=== PATIENT | male | born 1940 | race Caucasian/White ===

== ENCOUNTER 2018-04-27 06:29 | Inpatient (IN) ==
[2018-05-11 08:16] VITALS: BP 136/70
== END 2018-05-11 09:10 | disposition home health service (06) | DRG 982 ==
LOC: N.5E 06:29 → N.CVR 05-02 10:25 → N.TELES 05-03 10:11
PROVIDERS: ADMIT Internal Medicine Pulmonary Disease; ATTEND Internal Medicine Pulmonary Disease
PROC: CABGAVR (ICD-10-PCS; 2018-05-02 06:46)

== ENCOUNTER 2018-05-25 09:48 | Inpatient (IN) ==
[2018-05-25] MEDS ORDERED: MAGNESIUM SULF RIDER 2 GM in PREMIX 1 EACH IV PRN (09:59)
[2018-05-25] MEDS ORDERED: ACETAMINOPHEN 325 MG TABLET PO PRN (09:59)
[2018-05-25] MEDS ORDERED: MAGNESIUM SULF RIDER 4 GM in PREMIX 1 EACH IV PRN (09:59)
[2018-05-25] MEDS ORDERED: ZALEPLON 5 MG CAPSULE PO PRN (09:59)
[2018-05-25] MEDS ORDERED: ONDANSETRON 4 MG/2 ML VIAL IV PRN (09:59)
[2018-05-25 11:07] LABS: Basophils % 0.6 % (0.0-0.8); Eosinophils % 0.8 % (0.00-10.9); Hematocrit 38.8 VOL% (42.0-52.0); Hemoglobin 12.2 GM/DL (14.0-18.0); Immature Granulocytes % 0.4 %; Immature Granulocytes Absolute 0.02 #; Lymphocytes # 0.9 10*3/uL (1.4-4.0); Lymphocytes % 16.8 % (21.2-54.2); Mean Corpuscular HGB Conc 31.4 GM/DL (32-36); Mean Corpuscular Hemoglobin 30 PG (27-34); Mean Platelet Volume 10.1 FL (9.6-12.0); Monocytes # 0.6 10*3/uL (0.11-0.8); Monocytes % 10.5 % (1.7-12.7); NRBC # 0.02 10*3/uL; Neutrophils # 3.8 10*3/uL (1.4-7.4); Neutrophils % 70.9 % (38.7-73.9); Platelet Count 218 T/CUMM (130-400); Red Blood Count 4.04 MC/CUMM (3.8-5.5); Red Cell Distribution Width 19.3 % (9.3-17.3); White Blood Count 5.3 T/CUMM (4-12)
[2018-05-25 11:37] LABS: Troponin I Only < 0.015 NG/ML (0.00-0.045)
[2018-05-25 11:56] LABS: Bilirubin,Total 0.4 MG/DL (0.2-1.0); Calcium 8.7 MG/DL (8.5-10.1); Osmolality,Calculated 274.7 MOS/KG (273-304); Potassium 3.9 MMOL/L (3.5-5.1); Thyroid Stimulating Hormone 4.55 uIU/ml (0.358-3.74); Total Protein 7.1 G/DL (6.4-8.3)
[2018-05-25] MEDS ORDERED: NITROGLYCERIN SL 0.4 MG TABLET SL PRN (14:48)
[2018-05-25] MEDS: THEOPHYLLINE ER 300 MG TABLET PO SCH (17:33)
[2018-05-25] MEDS: ALBUTEROL 2.5 MG/3 ML NEB RESP TX SCH ×2 (20:25→23:56)
[2018-05-25] MEDS: DILTIAZEM CD 240 MG CAPSULE PO SCH (21:47)
[2018-05-25] MEDS: ENOXAPARIN 40 MG/0.4 ML SYRINGE SUBCUT SCH (21:47)
[2018-05-25] MEDS: AMIODARONE 200 MG TABLET PO SCH (21:48)
[2018-05-25] MEDS: FERROUS SULFATE ER 140 MG TABLET PO SCH (21:48)
[2018-05-25] MEDS: ROSUVASTATIN 20 MG TABLET PO SCH (21:49)
[2018-05-26] MEDS: ALBUTEROL 2.5 MG/3 ML NEB RESP TX SCH ×7 (04:40→23:07)
[2018-05-26 05:26] LABS: Basophils % 0.4 % (0.0-0.8); Eosinophils % 0.2 % (0.00-10.9); Hematocrit 37.6 VOL% (42.0-52.0); Hemoglobin 12.4 GM/DL (14.0-18.0); Immature Granulocytes % 0.6 %; Immature Granulocytes Absolute 0.03 #; Lymphocytes # 0.9 10*3/uL (1.4-4.0); Lymphocytes % 16.4 % (21.2-54.2); Mean Corpuscular Hemoglobin 31 PG (27-34); Mean Corpuscular Volume 93.1 FL (87-102); Mean Platelet Volume 9.8 FL (9.6-12.0); Monocytes # 0.5 10*3/uL (0.11-0.8); Monocytes % 9.5 % (1.7-12.7); NRBC # 0.02 10*3/uL; Neutrophils # 3.9 10*3/uL (1.4-7.4); Neutrophils % 72.9 % (38.7-73.9); Platelet Count 220 T/CUMM (130-400); Red Blood Count 4.04 MC/CUMM (3.8-5.5); Red Cell Distribution Width 18.8 % (9.3-17.3); White Blood Count 5.3 T/CUMM (4-12)
[2018-05-26 05:55] LABS: Calcium 8.3 MG/DL (8.5-10.1); Osmolality,Calculated 273.7 MOS/KG (273-304); Potassium 3.9 MMOL/L (3.5-5.1)
[2018-05-26] MEDS ORDERED: LEVOTHYROXINE 75 MCG TABLET PO SCH (06:30)
[2018-05-26 07:54] LABS: Apearance,Urine CLEAR (Clear); Bilirubin,Urine Negative (Negative); Blood, Urine Small mg/dL (Negative); Glucose,Urine (UA) 50 mg/dL (Negative); Ketones,Urine Negative (Negative); Mucus,Urine Occasional /LPF (Occasional); Nitrite,Urine Negative (Negative); Protein,Urine Negative; RBC,Urine 2 /HPF (0-4); Squamous Epithelial Cell,Urine Occasional /HPF (0-10); Urine Color Yellow (Yellow); Urine Specific Gravity 1.014 (1.001-1.035); Urine Urobilinogen < 2.0 EU/DL (0.2-1.0); WBC,Urine 1 /HPF (0-6)
[2018-05-26] MEDS: FERROUS SULFATE ER 140 MG TABLET PO SCH ×2 (08:40→20:46)
[2018-05-26] MEDS: AMIODARONE 200 MG TABLET PO SCH ×2 (08:40→20:46)
[2018-05-26] MEDS: DILTIAZEM CD 240 MG CAPSULE PO SCH ×2 (08:40→20:46)
[2018-05-26] MEDS: AZELASTINE NASAL 137 MCG/SPRAY 30 ML BOTTLE BOTH NARES SCH (08:40)
[2018-05-26] MEDS: ROSUVASTATIN 20 MG TABLET PO SCH (08:40)
[2018-05-26] MEDS: ASPIRIN EC 81 MG TABLET PO SCH (08:40)
[2018-05-26] MEDS: THEOPHYLLINE ER 300 MG TABLET PO SCH ×2 (08:40→16:37)
[2018-05-26] MEDS ORDERED: FUROSEMIDE 40 MG/4 ML VIAL IV ONE (11:30)
[2018-05-26] MEDS: DIGOXIN 0.125 MG TABLET PO SCH (12:38)
[2018-05-26] MEDS: ENOXAPARIN 40 MG/0.4 ML SYRINGE SUBCUT SCH (20:45)
[2018-05-27] MEDS: ALBUTEROL 2.5 MG/3 ML NEB RESP TX SCH ×6 (02:42→23:40)
[2018-05-27 04:55] LABS: Basophils % 0.5 % (0.0-0.8); Eosinophils % 0.9 % (0.00-10.9); Hematocrit 35.7 VOL% (42.0-52.0); Hemoglobin 11.1 GM/DL (14.0-18.0); Immature Granulocytes % 0.7 %; Immature Granulocytes Absolute 0.03 #; Lymphocytes # 0.7 10*3/uL (1.4-4.0); Mean Corpuscular HGB Conc 31.1 GM/DL (32-36); Mean Corpuscular Hemoglobin 30 PG (27-34); Mean Corpuscular Volume 96.5 FL (87-102); Mean Platelet Volume 10.5 FL (9.6-12.0); Monocytes # 0.5 10*3/uL (0.11-0.8); Monocytes % 11.1 % (1.7-12.7); Neutrophils # 3.1 10*3/uL (1.4-7.4); Neutrophils % 70.8 % (38.7-73.9); Platelet Count 197 T/CUMM (130-400); Red Cell Distribution Width 18.8 % (9.3-17.3); White Blood Count 4.3 T/CUMM (4-12)
[2018-05-27 05:20] LABS: Calcium 7.6 MG/DL (8.5-10.1); Osmolality,Calculated 274.5 MOS/KG (273-304); Potassium 3.8 MMOL/L (3.5-5.1)
[2018-05-27] MEDS: DOCUSATE SODIUM 100 MG CAPSULE PO PRN (09:40)
[2018-05-27] MEDS: THEOPHYLLINE ER 300 MG TABLET PO SCH ×2 (09:40→17:28)
[2018-05-27] MEDS: ROSUVASTATIN 20 MG TABLET PO SCH (09:40)
[2018-05-27] MEDS: ASPIRIN EC 81 MG TABLET PO SCH (09:40)
[2018-05-27] MEDS: FERROUS SULFATE ER 140 MG TABLET PO SCH ×2 (09:40→20:42)
[2018-05-27] MEDS: AMIODARONE 200 MG TABLET PO SCH ×2 (09:41→20:43)
[2018-05-27] MEDS: DILTIAZEM CD 240 MG CAPSULE PO SCH ×2 (09:41→20:42)
[2018-05-27] MEDS: AZELASTINE NASAL 137 MCG/SPRAY 30 ML BOTTLE BOTH NARES SCH (09:41)
[2018-05-27] MEDS: FUROSEMIDE 40 MG/4 ML VIAL IV SCH (09:42)
[2018-05-27] MEDS: DIGOXIN 0.125 MG TABLET PO SCH (12:30)
[2018-05-27] MEDS: ENOXAPARIN 40 MG/0.4 ML SYRINGE SUBCUT SCH (20:43)
[2018-05-28] MEDS: ALBUTEROL 2.5 MG/3 ML NEB RESP TX SCH ×7 (03:36→23:57)
[2018-05-28 03:46] LABS: Basophils % 0.7 % (0.0-0.8); Eosinophils # 0.1 10*3/uL (0.0-0.87); Eosinophils % 1.7 % (0.00-10.9); Hematocrit 35.5 VOL% (42.0-52.0); Hemoglobin 11.5 GM/DL (14.0-18.0); Immature Granulocytes % 0.7 %; Immature Granulocytes Absolute 0.03 #; Lymphocytes # 0.7 10*3/uL (1.4-4.0); Lymphocytes % 17.7 % (21.2-54.2); Mean Corpuscular HGB Conc 32.4 GM/DL (32-36); Mean Corpuscular Hemoglobin 31 PG (27-34); Mean Corpuscular Volume 94.9 FL (87-102); Mean Platelet Volume 10.6 FL (9.6-12.0); Monocytes # 0.4 10*3/uL (0.11-0.8); Monocytes % 9.8 % (1.7-12.7); Neutrophils # 2.9 10*3/uL (1.4-7.4); Neutrophils % 69.4 % (38.7-73.9); Platelet Count 206 T/CUMM (130-400); Red Blood Count 3.74 MC/CUMM (3.8-5.5); Red Cell Distribution Width 18.8 % (9.3-17.3); White Blood Count 4.2 T/CUMM (4-12)
[2018-05-28 04:27] LABS: Calcium 7.8 MG/DL (8.5-10.1); Osmolality,Calculated 278.5 MOS/KG (273-304); Potassium 3.7 MMOL/L (3.5-5.1)
[2018-05-28] MEDS: ASPIRIN EC 81 MG TABLET PO SCH (08:48)
[2018-05-28] MEDS: AMIODARONE 200 MG TABLET PO SCH ×2 (08:48→20:03)
[2018-05-28] MEDS: DILTIAZEM CD 240 MG CAPSULE PO SCH ×2 (08:48→20:02)
[2018-05-28] MEDS: FERROUS SULFATE ER 140 MG TABLET PO SCH ×2 (08:48→20:02)
[2018-05-28] MEDS: THEOPHYLLINE ER 300 MG TABLET PO SCH ×2 (08:48→17:50)
[2018-05-28] MEDS: ROSUVASTATIN 20 MG TABLET PO SCH (08:48)
[2018-05-28] MEDS: FUROSEMIDE 40 MG/4 ML VIAL IV SCH (08:49)
[2018-05-28] MEDS: AZELASTINE NASAL 137 MCG/SPRAY 30 ML BOTTLE BOTH NARES SCH (08:49)
[2018-05-28] MEDS: BISACODYL 5 MG TABLET PO PRN (10:56)
[2018-05-28] MEDS: DIGOXIN 0.125 MG TABLET PO SCH (14:19)
[2018-05-28] MEDS: ENOXAPARIN 40 MG/0.4 ML SYRINGE SUBCUT SCH (20:02)
[2018-05-29 03:51] LABS: Basophils % 0.7 % (0.0-0.8); Eosinophils # 0.1 10*3/uL (0.0-0.87); Eosinophils % 1.2 % (0.00-10.9); Hematocrit 34.9 VOL% (42.0-52.0); Hemoglobin 11.1 GM/DL (14.0-18.0); Immature Granulocytes Absolute 0.04 #; Lymphocytes # 0.6 10*3/uL (1.4-4.0); Lymphocytes % 14.7 % (21.2-54.2); Mean Corpuscular HGB Conc 31.8 GM/DL (32-36); Mean Corpuscular Hemoglobin 31 PG (27-34); Mean Corpuscular Volume 96.4 FL (87-102); Mean Platelet Volume 10.5 FL (9.6-12.0); Monocytes # 0.4 10*3/uL (0.11-0.8); Monocytes % 10.6 % (1.7-12.7); Neutrophils % 71.8 % (38.7-73.9); Platelet Count 200 T/CUMM (130-400); Red Blood Count 3.62 MC/CUMM (3.8-5.5); Red Cell Distribution Width 18.6 % (9.3-17.3); White Blood Count 4.1 T/CUMM (4-12)
[2018-05-29] MEDS: ALBUTEROL 2.5 MG/3 ML NEB RESP TX SCH ×7 (04:01→23:12)
[2018-05-29 04:19] LABS: Calcium 8.1 MG/DL (8.5-10.1); Osmolality,Calculated 275.7 MOS/KG (273-304); Potassium 3.6 MMOL/L (3.5-5.1)
[2018-05-29] MEDS: POTASSIUM CHLORIDE 20 MEQ TABLET PO PRN ×2 (04:47→06:25)
[2018-05-29] MEDS: BISACODYL 5 MG TABLET PO PRN (09:29)
[2018-05-29] MEDS: ASPIRIN EC 81 MG TABLET PO SCH (09:30)
[2018-05-29] MEDS: DOCUSATE SODIUM 100 MG CAPSULE PO PRN (09:30)
[2018-05-29] MEDS: AMIODARONE 200 MG TABLET PO SCH ×2 (09:30→21:05)
[2018-05-29] MEDS: DILTIAZEM CD 240 MG CAPSULE PO SCH ×2 (09:30→21:05)
[2018-05-29] MEDS: THEOPHYLLINE ER 300 MG TABLET PO SCH ×2 (09:30→17:02)
[2018-05-29] MEDS: FERROUS SULFATE ER 140 MG TABLET PO SCH ×2 (09:30→21:05)
[2018-05-29] MEDS: ROSUVASTATIN 20 MG TABLET PO SCH (09:30)
[2018-05-29] MEDS: AZELASTINE NASAL 137 MCG/SPRAY 30 ML BOTTLE BOTH NARES SCH (09:31)
[2018-05-29] MEDS: FUROSEMIDE 40 MG/4 ML VIAL IV SCH (09:31)
[2018-05-29] MEDS: DIGOXIN 0.125 MG TABLET PO SCH (13:02)
[2018-05-29] MEDS: ENOXAPARIN 40 MG/0.4 ML SYRINGE SUBCUT SCH (21:05)
[2018-05-30] MEDS: ALBUTEROL 2.5 MG/3 ML NEB RESP TX SCH ×2 (02:59→07:05)
[2018-05-30 08:09] VITALS: BP 138/68
[2018-05-30] MEDS: DILTIAZEM CD 240 MG CAPSULE PO SCH (08:29)
[2018-05-30] MEDS: THEOPHYLLINE ER 300 MG TABLET PO SCH (08:29)
[2018-05-30] MEDS: FERROUS SULFATE ER 140 MG TABLET PO SCH (08:29)
[2018-05-30] MEDS: ROSUVASTATIN 20 MG TABLET PO SCH (08:29)
[2018-05-30] MEDS: ASPIRIN EC 81 MG TABLET PO SCH (08:29)
[2018-05-30] MEDS: AMIODARONE 200 MG TABLET PO SCH (08:30)
[2018-05-30] MEDS: AZELASTINE NASAL 137 MCG/SPRAY 30 ML BOTTLE BOTH NARES SCH (08:37)
[2018-05-30] MEDS ORDERED: POTASSIUM CHLORIDE 20 MEQ TABLET PO SCH (09:00)
[2018-05-30] MEDS ORDERED: FUROSEMIDE 40 MG TABLET PO SCH (09:00)
== END 2018-05-30 08:53 | disposition home health service (06) | DRG 292 ==
LOC: N.2W → N.TELES 12:13
PROVIDERS: ADMIT Internal Medicine Cardiovascular Disease; ATTEND Internal Medicine Cardiovascular Disease

== ENCOUNTER 2022-11-18 13:40 | Inpatient (IN) ==
[2022-11-18] MEDS ORDERED: methylPREDNISolone SOD SUC 125 MG/2 ML VIAL IV STA (14:06)
[2022-11-18] MEDS ORDERED: SODIUM CHLORIDE 0.9% 1,000 ML IV STA (14:06)
[2022-11-18] MEDS ORDERED: ALBUTEROL/IPRATROPIUM 3 ML NEB RESP TX STA (14:06)
[2022-11-18 15:57] LABS: Albumin 3.2 G/DL (3.4-5.0); Bilirubin,Total 0.8 MG/DL (0.20-1.00); Calcium 8.1 MG/DL (8.5-10.1); Osmolality,Calculated 277.5 MOS/KG (273-304); PT Patient Result 11.4 SECS (10.1-12.1); Potassium 4.2 MMOL/L (3.5-5.1); Total Protein 6.4 G/DL (6.4-8.2)
[2022-11-18 16:24] LABS: Basophils % 0.3 % (0.0-0.8); Hematocrit 31.4 VOL% (42.0-52.0); Hemoglobin 8.7 GM/DL (14.0-18.0); Immature Granulocytes % 0.6 %; Immature Granulocytes Absolute 0.09 #; Lymphocytes # 1.2 10*3/uL (1.4-4.0); Lymphocytes % 7.9 % (21.2-54.2); Mean Corpuscular HGB Conc 27.7 GM/DL (32-36); Mean Corpuscular Volume 82.8 FL (87-102); Mean Platelet Volume 10.1 FL (9.6-12.0); Monocytes # 0.6 10*3/uL (0.11-0.8); Monocytes % 3.7 % (1.7-12.7); Neutrophils % 87.5 % (38.7-73.9); Platelet Count 217 T/CUMM (130-400); Red Blood Count 3.79 MC/CUMM (3.8-5.5); Red Cell Distribution Width 20.4 % (9.3-17.3)
[2022-11-18 16:27] LABS: Anisocytosis 1+; Hypochromia 1+; Microcytosis 1+; Platelet Estimate Adequate
[2022-11-18] MEDS ORDERED: VANCOMYCIN INJ 1,000 MG in SODIUM CHLORIDE 0.9% 250 ML IV STA (16:38)
[2022-11-18] MEDS ORDERED: CEFEPIME 1,000 MG in SODIUM CHLORIDE 0.9% 100 ML IV STA (16:38)
[2022-11-18 16:50] LABS: Glucose,Urine (UA) Negative (Negative); Protein,Urine 30 mg/dL (Negative); Urine Appearance Clear (Clear); Urine Color Yellow (Yellow); Urine Specific Gravity 1.025 (1.001-1.035); Urine pH 6.5 (4.5-8.0)
[2022-11-18 16:51] LABS: Bilirubin,Urine Small mg/dL (Negative); Blood, Urine Trace mg/dL (Negative); Ketones,Urine 15 mg/dL (Negative); Nitrite,Urine Negative (Negative)
[2022-11-18 16:56] LABS: Mucus,Urine Many /LPF (Occasional); RBC,Urine 6 /HPF (0-4); Squamous Epithelial Cell,Urine Occasional /HPF (0-10)
[2022-11-18] MEDS ORDERED: DOCUSATE SODIUM 100 MG CAPSULE PO PRN (17:05)
[2022-11-18] MEDS ORDERED: ONDANSETRON 4 MG/2 ML VIAL IV PRN (17:05)
[2022-11-18] MEDS: SODIUM CHLORIDE 0.45% 1,000 ML IV SCH (18:25)
[2022-11-18] MEDS: ALBUTEROL/IPRATROPIUM 3 ML NEB RESP TX SCH (19:00)
[2022-11-18] MEDS: HEPARIN 5,000 UNIT/1 ML VIAL SUBCUT SCH (21:05)
[2022-11-19] MEDS ORDERED: oxyCODONE/ACETAMINOPHEN 5-325 MG TABLET PO ONE (00:15)
[2022-11-19] MEDS: ALBUTEROL/IPRATROPIUM 3 ML NEB RESP TX SCH ×4 (03:23→19:20)
[2022-11-19 05:02] LABS: Basophils % 0.2 % (0.0-0.8); Hematocrit 27.7 VOL% (42.0-52.0); Hemoglobin 7.9 GM/DL (14.0-18.0); Immature Granulocytes % 0.4 %; Immature Granulocytes Absolute 0.02 #; Lymphocytes % 17.4 % (21.2-54.2); Mean Corpuscular HGB Conc 28.5 GM/DL (32-36); Mean Corpuscular Volume 80.5 FL (87-102); Mean Platelet Volume 10.3 FL (9.6-12.0); Monocytes # 0.1 10*3/uL (0.11-0.8); Monocytes % 2.2 % (1.7-12.7); Neutrophils % 79.8 % (38.7-73.9); Platelet Count 209 T/CUMM (130-400); Red Blood Count 3.44 MC/CUMM (3.8-5.5); Red Cell Distribution Width 20.1 % (9.3-17.3); White Blood Count 5.5 T/CUMM (4-12)
[2022-11-19 05:23] LABS: Calcium 8.6 MG/DL (8.5-10.1); Osmolality,Calculated 276.8 MOS/KG (273-304); Potassium 3.6 MMOL/L (3.5-5.1)
[2022-11-19] MEDS: cefTRIAXone 2,000 MG in SODIUM CHLORIDE 0.9% 100 ML IV SCH (09:46)
[2022-11-19] MEDS: PANTOPRAZOLE 40 MG TABLET PO SCH (09:46)
[2022-11-19] MEDS: HEPARIN 5,000 UNIT/1 ML VIAL SUBCUT SCH (09:47)
[2022-11-19] MEDS ORDERED: NITROGLYCERIN SL 0.4 MG TABLET SL PRN (10:09)
[2022-11-19] MEDS: AZITHROMYCIN INJ 500 MG in SODIUM CHLORIDE 0.9% 250 ML IV SCH (10:34)
[2022-11-19] MEDS: MORPHINE ER 30 MG TABLET PO SCH ×2 (10:35→20:19)
[2022-11-19] MEDS: MONTELUKAST 10 MG TABLET PO SCH (10:36)
[2022-11-19] MEDS: BISACODYL 5 MG TABLET PO PRN (10:36)
[2022-11-19] MEDS: CHOLECALCIFEROL 1,000 UNIT TABLET PO SCH (10:36)
[2022-11-19 10:49] LABS: Prostate Specific Antigen Diag 0.41 NG/ML (0-3.60)
[2022-11-19 10:53] LABS: % Iron Saturation 4.9 % (18-50); Thyroid Stimulating Hormone 0.254 uIU/ml (0.358-3.74)
[2022-11-19] MEDS: FERRIC GLUCONATE COMPLEX 125 MG in SODIUM CHLORIDE 0.9% 100 ML IV SCH (11:52)
[2022-11-19] MEDS: SODIUM CHLORIDE 0.45% 1,000 ML IV SCH (11:52)
[2022-11-19] MEDS: DORNASE ALFA 2.5 MG/2.5 ML VIAL RESP TX SCH ×2 (13:39→19:20)
[2022-11-19] MEDS: PYRIDOSTIGMINE 60 MG TABLET PO SCH ×4 (15:10→21:06)
[2022-11-19] MEDS: ALBUTEROL 0.4 MG/ML 30 ML/BOTTLE PO SCH ×2 (15:12→20:20)
[2022-11-19] MEDS: oxyCODONE/ACETAMINOPHEN 5-325 MG TABLET PO PRN (18:12)
[2022-11-19] MEDS: THEOPHYLLINE ER 300 MG TABLET PO SCH (20:20)
[2022-11-19] MEDS: tiZANidine 4 MG TABLET PO SCH (20:20)
[2022-11-20] MEDS: ALBUTEROL/IPRATROPIUM 3 ML NEB RESP TX SCH ×4 (01:15→18:55)
[2022-11-20] MEDS: SODIUM CHLORIDE 0.45% 1,000 ML IV SCH ×2 (02:18→19:47)
[2022-11-20] MEDS: oxyCODONE/ACETAMINOPHEN 5-325 MG TABLET PO PRN (04:58)
[2022-11-20] MEDS: PYRIDOSTIGMINE 60 MG TABLET PO SCH ×5 (05:01→21:39)
[2022-11-20 05:31] LABS: Partial Thromboplastin Time 30.2 SECS (23.7-32.9)
[2022-11-20 05:32] LABS: Calcium 8.3 MG/DL (8.5-10.1); Osmolality,Calculated 284.1 MOS/KG (273-304); Potassium 3.8 MMOL/L (3.5-5.1)
[2022-11-20 06:28] LABS: Basophils % 0.3 % (0.0-0.8); Eosinophils % 0.3 % (0.00-10.9); Hematocrit 26.9 VOL% (42.0-52.0); Hemoglobin 7.6 GM/DL (14.0-18.0); Immature Granulocytes % 0.3 %; Immature Granulocytes Absolute 0.02 #; Lymphocytes # 1.8 10*3/uL (1.4-4.0); Mean Corpuscular HGB Conc 28.3 GM/DL (32-36); Mean Platelet Volume 9.9 FL (9.6-12.0); Monocytes # 0.4 10*3/uL (0.11-0.8); Monocytes % 4.9 % (1.7-12.7); Neutrophils % 71.2 % (38.7-73.9); Platelet Count 210 T/CUMM (130-400); Red Blood Count 3.32 MC/CUMM (3.8-5.5); Red Cell Distribution Width 20.3 % (9.3-17.3); White Blood Count 7.9 T/CUMM (4-12)
[2022-11-20] MEDS ORDERED: MIDAZOLAM 2 MG/2 ML VIAL ONE (06:34)
[2022-11-20] MEDS: DORNASE ALFA 2.5 MG/2.5 ML VIAL RESP TX SCH ×2 (07:03→19:00)
[2022-11-20] MEDS: PANTOPRAZOLE 40 MG TABLET PO SCH ×2 (07:44→11:23)
[2022-11-20] MEDS: THEOPHYLLINE ER 300 MG TABLET PO SCH ×3 (07:44→21:39)
[2022-11-20] MEDS: CHOLECALCIFEROL 1,000 UNIT TABLET PO SCH ×2 (07:44→11:24)
[2022-11-20] MEDS: MONTELUKAST 10 MG TABLET PO SCH ×2 (07:44→11:23)
[2022-11-20] MEDS: ALBUTEROL 0.4 MG/ML 30 ML/BOTTLE PO SCH ×4 (07:48→21:40)
[2022-11-20] MEDS ORDERED: MEPERIDINE 50 MG/1 ML VIAL IM ONE (08:00)
[2022-11-20] MEDS ORDERED: BENZONATATE 100 MG CAPSULE PO ONE (08:00)
[2022-11-20] MEDS ORDERED: diphenhydrAMINE 50 MG/1 ML VIAL IM ONE (08:00)
[2022-11-20] MEDS ORDERED: LIDOCAINE 1% 20 ML VIAL MISC INJ ONE (08:30)
[2022-11-20] MEDS ORDERED: LIDOCAINE 2% VISCOUS 100 ML BOTTLE SWISH/SPIT ONE (08:30)
[2022-11-20] MEDS ORDERED: LIDOCAINE 2% 20 ML VIAL RESP TX ONE (08:30)
[2022-11-20] MEDS: FERRIC GLUCONATE COMPLEX 125 MG in SODIUM CHLORIDE 0.9% 100 ML IV SCH (11:14)
[2022-11-20] MEDS: ROSUVASTATIN 20 MG TABLET PO SCH (11:14)
[2022-11-20] MEDS: MORPHINE ER 30 MG TABLET PO SCH ×2 (11:17→21:39)
[2022-11-20] MEDS: cefTRIAXone 2,000 MG in SODIUM CHLORIDE 0.9% 100 ML IV SCH (12:22)
[2022-11-20] MEDS: AZITHROMYCIN INJ 500 MG in SODIUM CHLORIDE 0.9% 250 ML IV SCH (13:11)
[2022-11-20] MEDS: tiZANidine 4 MG TABLET PO SCH (21:39)
[2022-11-21] MEDS: ACETAMINOPHEN 325 MG TABLET PO PRN (00:08)
[2022-11-21] MEDS: ALBUTEROL/IPRATROPIUM 3 ML NEB RESP TX SCH ×4 (01:05→18:57)
[2022-11-21 05:33] LABS: Calcium 8.2 MG/DL (8.5-10.1); Osmolality,Calculated 273.7 MOS/KG (273-304); Potassium 3.2 MMOL/L (3.5-5.1)
[2022-11-21] MEDS: PYRIDOSTIGMINE 60 MG TABLET PO SCH ×5 (06:06→22:41)
[2022-11-21 06:09] LABS: Basophils % 0.4 % (0.0-0.8); Eosinophils % 0.4 % (0.00-10.9); Hematocrit 30.3 VOL% (42.0-52.0); Immature Granulocytes % 0.2 %; Immature Granulocytes Absolute 0.01 #; Lymphocytes # 1.9 10*3/uL (1.4-4.0); Mean Corpuscular HGB Conc 27.7 GM/DL (32-36); Mean Corpuscular Volume 81.2 FL (87-102); Mean Platelet Volume 10.7 FL (9.6-12.0); Monocytes # 0.3 10*3/uL (0.11-0.8); Monocytes % 6.5 % (1.7-12.7); Neutrophils % 51.5 % (38.7-73.9); Platelet Count 250 T/CUMM (130-400); Red Blood Count 3.73 MC/CUMM (3.8-5.5); Red Cell Distribution Width 20.6 % (9.3-17.3); White Blood Count 4.6 T/CUMM (4-12)
[2022-11-21 06:11] LABS: Hemoglobin 8.4 GM/DL (14.0-18.0)
[2022-11-21 06:52] LABS: Hypochromia 1+; Microcytosis Slight; Platelet Estimate Normal
[2022-11-21] MEDS: DORNASE ALFA 2.5 MG/2.5 ML VIAL RESP TX SCH ×2 (07:20→18:58)
[2022-11-21] MEDS ORDERED: POTASSIUM CHLORIDE 20 MEQ TABLET PO PRN (09:00)
[2022-11-21] MEDS: ALBUTEROL 0.4 MG/ML 30 ML/BOTTLE PO SCH ×3 (09:22→20:47)
[2022-11-21] MEDS: FERRIC GLUCONATE COMPLEX 125 MG in SODIUM CHLORIDE 0.9% 100 ML IV SCH ×2 (09:22→11:28)
[2022-11-21] MEDS: cefTRIAXone 2,000 MG in SODIUM CHLORIDE 0.9% 100 ML IV SCH (09:24)
[2022-11-21] MEDS: MORPHINE ER 30 MG TABLET PO SCH ×2 (09:26→20:45)
[2022-11-21] MEDS: PANTOPRAZOLE 40 MG TABLET PO SCH (09:26)
[2022-11-21] MEDS: CHOLECALCIFEROL 1,000 UNIT TABLET PO SCH (09:26)
[2022-11-21] MEDS: THEOPHYLLINE ER 300 MG TABLET PO SCH ×2 (09:26→20:47)
[2022-11-21] MEDS: MONTELUKAST 10 MG TABLET PO SCH (09:30)
[2022-11-21] MEDS: AZITHROMYCIN INJ 500 MG in SODIUM CHLORIDE 0.9% 250 ML IV SCH (10:25)
[2022-11-21] MEDS: POTASSIUM CHLORIDE RIDER 10 MEQ/100 ML PREMIX IV PRN ×4 (12:35→15:36)
[2022-11-21] MEDS: SODIUM CHLORIDE 0.45% 1,000 ML IV SCH (12:36)
[2022-11-21] MEDS: tiZANidine 4 MG TABLET PO SCH (20:47)
[2022-11-21] MEDS ORDERED: ZALEPLON 5 MG CAPSULE PO ONE (22:45)
[2022-11-22] MEDS: ALBUTEROL/IPRATROPIUM 3 ML NEB RESP TX SCH ×4 (00:24→19:35)
[2022-11-22] MEDS: PYRIDOSTIGMINE 60 MG TABLET PO SCH ×5 (05:50→21:26)
[2022-11-22 06:09] LABS: Calcium 8.5 MG/DL (8.5-10.1); Potassium 3.6 MMOL/L (3.5-5.1)
[2022-11-22 06:22] LABS: Basophils % 0.8 % (0.0-0.8); Eosinophils # 0.1 10*3/uL (0.0-0.87); Eosinophils % 1.6 % (0.00-10.9); Hematocrit 31.8 VOL% (42.0-52.0); Immature Granulocytes % 0.3 %; Immature Granulocytes Absolute 0.01 #; Lymphocytes # 1.4 10*3/uL (1.4-4.0); Lymphocytes % 37.3 % (21.2-54.2); Mean Corpuscular HGB Conc 27.7 GM/DL (32-36); Mean Corpuscular Volume 80.9 FL (87-102); Mean Platelet Volume 10.3 FL (9.6-12.0); Monocytes # 0.3 10*3/uL (0.11-0.8); Monocytes % 8.5 % (1.7-12.7); Neutrophils % 51.5 % (38.7-73.9); Platelet Count 236 T/CUMM (130-400); Red Blood Count 3.93 MC/CUMM (3.8-5.5); Red Cell Distribution Width 20.3 % (9.3-17.3); White Blood Count 3.8 T/CUMM (4-12)
[2022-11-22 06:27] LABS: Hemoglobin 8.8 GM/DL (14.0-18.0)
[2022-11-22 06:34] LABS: Hypochromia 1+
[2022-11-22 06:35] LABS: Microcytosis 1+; Ovalocytes Slight; Platelet Estimate Normal
[2022-11-22] MEDS: SODIUM CHLORIDE 0.45% 1,000 ML IV SCH ×2 (07:37→21:26)
[2022-11-22] MEDS: DORNASE ALFA 2.5 MG/2.5 ML VIAL RESP TX SCH ×2 (07:47→19:35)
[2022-11-22] MEDS: cefTRIAXone 2,000 MG in SODIUM CHLORIDE 0.9% 100 ML IV SCH (10:55)
[2022-11-22] MEDS: AZITHROMYCIN INJ 500 MG in SODIUM CHLORIDE 0.9% 250 ML IV SCH (10:56)
[2022-11-22] MEDS: THEOPHYLLINE ER 300 MG TABLET PO SCH ×2 (10:57→21:26)
[2022-11-22] MEDS: FERRIC GLUCONATE COMPLEX 125 MG in SODIUM CHLORIDE 0.9% 100 ML IV SCH (10:57)
[2022-11-22] MEDS: MONTELUKAST 10 MG TABLET PO SCH (10:58)
[2022-11-22] MEDS: PANTOPRAZOLE 40 MG TABLET PO SCH (10:58)
[2022-11-22] MEDS: MORPHINE ER 30 MG TABLET PO SCH ×2 (10:58→21:25)
[2022-11-22] MEDS: CHOLECALCIFEROL 1,000 UNIT TABLET PO SCH (10:58)
[2022-11-22] MEDS: ALBUTEROL 0.4 MG/ML 30 ML/BOTTLE PO SCH ×3 (10:58→21:24)
[2022-11-22] MEDS: BISACODYL 5 MG TABLET PO PRN (17:19)
[2022-11-22] MEDS: oxyCODONE/ACETAMINOPHEN 5-325 MG TABLET PO PRN (18:21)
[2022-11-22] MEDS: tiZANidine 4 MG TABLET PO SCH (21:26)
[2022-11-23] MEDS: ALBUTEROL/IPRATROPIUM 3 ML NEB RESP TX SCH ×4 (00:25→19:32)
[2022-11-23] MEDS: PYRIDOSTIGMINE 60 MG TABLET PO SCH ×5 (05:36→21:49)
[2022-11-23 05:55] LABS: Calcium 8.9 MG/DL (8.5-10.1); Osmolality,Calculated 275.5 MOS/KG (273-304)
[2022-11-23 06:12] LABS: Basophils % 0.5 % (0.0-0.8); Eosinophils # 0.1 10*3/uL (0.0-0.87); Eosinophils % 1.9 % (0.00-10.9); Hematocrit 28.9 VOL% (42.0-52.0); Immature Granulocytes % 0.3 %; Immature Granulocytes Absolute 0.01 #; Lymphocytes # 1.6 10*3/uL (1.4-4.0); Lymphocytes % 44.1 % (21.2-54.2); Mean Corpuscular HGB Conc 28.4 GM/DL (32-36); Mean Corpuscular Volume 81.2 FL (87-102); Mean Platelet Volume 10.3 FL (9.6-12.0); Monocytes # 0.4 10*3/uL (0.11-0.8); Monocytes % 10.4 % (1.7-12.7); Neutrophils % 42.8 % (38.7-73.9); Platelet Count 232 T/CUMM (130-400); Red Blood Count 3.56 MC/CUMM (3.8-5.5); Red Cell Distribution Width 20.3 % (9.3-17.3); White Blood Count 3.7 T/CUMM (4-12)
[2022-11-23 06:16] LABS: Hemoglobin 8.2 GM/DL (14.0-18.0)
[2022-11-23] MEDS: DORNASE ALFA 2.5 MG/2.5 ML VIAL RESP TX SCH ×2 (07:23→19:32)
[2022-11-23] MEDS: LACTATED RINGERS 1,000 ML IV SCH (09:01)
[2022-11-23] MEDS ORDERED: LIDOCAINE 2% 5 ML VIAL ONE (09:13)
[2022-11-23] MEDS ORDERED: propofoL 200 MG/20 ML VIAL IV ONE (09:13)
[2022-11-23] MEDS: FERRIC GLUCONATE COMPLEX 125 MG in SODIUM CHLORIDE 0.9% 100 ML IV SCH (11:23)
[2022-11-23] MEDS: cefTRIAXone 2,000 MG in SODIUM CHLORIDE 0.9% 100 ML IV SCH (11:24)
[2022-11-23] MEDS ORDERED: AZITHROMYCIN INJ 500 MG in SODIUM CHLORIDE 0.9% 250 ML IV SCH (13:00)
[2022-11-23] MEDS: MORPHINE ER 30 MG TABLET PO SCH ×2 (13:13→21:43)
[2022-11-23] MEDS: ROSUVASTATIN 20 MG TABLET PO SCH (13:13)
[2022-11-23] MEDS: PANTOPRAZOLE 40 MG TABLET PO SCH (13:14)
[2022-11-23] MEDS: CHOLECALCIFEROL 1,000 UNIT TABLET PO SCH (13:14)
[2022-11-23] MEDS: THEOPHYLLINE ER 300 MG TABLET PO SCH ×2 (13:14→21:49)
[2022-11-23] MEDS: ALBUTEROL 0.4 MG/ML 30 ML/BOTTLE PO SCH ×3 (13:14→21:49)
[2022-11-23] MEDS: MONTELUKAST 10 MG TABLET PO SCH (13:14)
[2022-11-23] MEDS: AZITHROMYCIN INJ 500 MG in SODIUM CHLORIDE 0.9% 250 ML IV SCH (13:32)
[2022-11-23] MEDS: SODIUM CHLORIDE 0.45% 1,000 ML IV SCH (18:31)
[2022-11-23] MEDS: tiZANidine 4 MG TABLET PO SCH (21:43)
[2022-11-24] MEDS: ALBUTEROL/IPRATROPIUM 3 ML NEB RESP TX SCH ×5 (00:08→23:58)
[2022-11-24 05:27] LABS: INR 1.1; PT Patient Result 11.8 SECS (10.1-12.1)
[2022-11-24 05:41] LABS: Calcium 8.7 MG/DL (8.5-10.1); Osmolality,Calculated 277.3 MOS/KG (273-304); Potassium 3.5 MMOL/L (3.5-5.1)
[2022-11-24 06:02] LABS: Eosinophils % 1.3 % (0.00-10.9); Immature Granulocytes % 0.6 %; Immature Granulocytes Absolute 0.02 #; Lymphocytes # 1.4 10*3/uL (1.4-4.0); Lymphocytes % 43.8 % (21.2-54.2); Mean Corpuscular HGB Conc 27.4 GM/DL (32-36); Mean Corpuscular Volume 84.1 FL (87-102); Monocytes # 0.3 10*3/uL (0.11-0.8); Monocytes % 10.1 % (1.7-12.7); Neutrophils % 43.2 % (38.7-73.9); Platelet Count 203 T/CUMM (130-400); Red Blood Count 3.47 MC/CUMM (3.8-5.5); Red Cell Distribution Width 20.9 % (9.3-17.3); White Blood Count 3.1 T/CUMM (4-12)
[2022-11-24 06:04] LABS: Hematocrit 29.2 VOL% (42.0-52.0)
[2022-11-24] MEDS: PYRIDOSTIGMINE 60 MG TABLET PO SCH ×5 (06:18→22:00)
[2022-11-24] MEDS: DORNASE ALFA 2.5 MG/2.5 ML VIAL RESP TX SCH ×2 (07:15→19:18)
[2022-11-24] MEDS ORDERED: LACTATED RINGERS 1,000 ML IV SCH (08:00)
[2022-11-24] MEDS: MORPHINE ER 30 MG TABLET PO SCH ×2 (08:01→22:00)
[2022-11-24] MEDS: PANTOPRAZOLE 40 MG TABLET PO SCH (08:01)
[2022-11-24] MEDS ORDERED: LIDOCAINE 4% TOP SOLN 50 ML BOTTLE ONE (11:05)
[2022-11-24] MEDS ORDERED: LIDOCAINE 2% 5 ML VIAL ONE (11:31)
[2022-11-24] MEDS ORDERED: ETOMIDATE 20 MG/10 ML VIAL IV ONE (11:31)
[2022-11-24] MEDS ORDERED: propofoL 200 MG/20 ML VIAL IV ONE (11:47)
[2022-11-24] MEDS ORDERED: GLYCOPYRROLATE 0.4 MG/2 ML VIAL ONE (11:47)
[2022-11-24] MEDS: MONTELUKAST 10 MG TABLET PO SCH (13:55)
[2022-11-24] MEDS: THEOPHYLLINE ER 300 MG TABLET PO SCH ×2 (13:55→22:00)
[2022-11-24] MEDS: CHOLECALCIFEROL 1,000 UNIT TABLET PO SCH (13:55)
[2022-11-24] MEDS: ALBUTEROL 0.4 MG/ML 30 ML/BOTTLE PO SCH ×3 (13:55→22:00)
[2022-11-24] MEDS: FERRIC GLUCONATE COMPLEX 125 MG in SODIUM CHLORIDE 0.9% 100 ML IV SCH (14:25)
[2022-11-24] MEDS: cefTRIAXone 2,000 MG in SODIUM CHLORIDE 0.9% 100 ML IV SCH (14:26)
[2022-11-24] MEDS: SODIUM CHLORIDE 0.45% 1,000 ML IV SCH (14:26)
[2022-11-24] MEDS: LACTATED RINGERS 1,000 ML IV SCH (17:03)
[2022-11-24] MEDS: tiZANidine 4 MG TABLET PO SCH (22:00)
[2022-11-25] MEDS: PYRIDOSTIGMINE 60 MG TABLET PO SCH ×5 (05:36→20:30)
[2022-11-25 06:16] LABS: Calcium 8.4 MG/DL (8.5-10.1); Osmolality,Calculated 279.4 MOS/KG (273-304); Potassium 3.5 MMOL/L (3.5-5.1)
[2022-11-25 06:22] LABS: Basophils % 0.7 % (0.0-0.8); Hematocrit 25.3 VOL% (42.0-52.0); Hemoglobin 7.1 GM/DL (14.0-18.0); Immature Granulocytes % 0.3 %; Immature Granulocytes Absolute 0.01 #; Lymphocytes # 1.3 10*3/uL (1.4-4.0); Lymphocytes % 42.8 % (21.2-54.2); Mean Corpuscular HGB Conc 28.1 GM/DL (32-36); Mean Corpuscular Volume 83.2 FL (87-102); Mean Platelet Volume 9.9 FL (9.6-12.0); Monocytes # 0.3 10*3/uL (0.11-0.8); Monocytes % 11.4 % (1.7-12.7); Neutrophils % 43.8 % (38.7-73.9); Platelet Count 167 T/CUMM (130-400); Red Blood Count 3.04 MC/CUMM (3.8-5.5); Red Cell Distribution Width 20.8 % (9.3-17.3)
[2022-11-25 06:32] LABS: Anisocytosis 2+; Hypochromia 1+; Ovalocytes Few; Platelet Estimate Normal
[2022-11-25 06:33] LABS: Tear Drop Cells Few
[2022-11-25] MEDS: ALBUTEROL/IPRATROPIUM 3 ML NEB RESP TX SCH ×3 (07:53→19:45)
[2022-11-25] MEDS: DORNASE ALFA 2.5 MG/2.5 ML VIAL RESP TX SCH ×2 (07:59→19:35)
[2022-11-25] MEDS ORDERED: SODIUM CHLORIDE 0.9% 1,000 ML IV PRN (09:31)
[2022-11-25] MEDS: MORPHINE ER 30 MG TABLET PO SCH ×2 (10:05→20:06)
[2022-11-25] MEDS: MONTELUKAST 10 MG TABLET PO SCH (10:05)
[2022-11-25] MEDS: ROSUVASTATIN 20 MG TABLET PO SCH (10:05)
[2022-11-25] MEDS: CHOLECALCIFEROL 1,000 UNIT TABLET PO SCH (10:05)
[2022-11-25] MEDS: THEOPHYLLINE ER 300 MG TABLET PO SCH ×2 (10:06→20:30)
[2022-11-25] MEDS: ALBUTEROL 0.4 MG/ML 30 ML/BOTTLE PO SCH ×3 (10:06→21:31)
[2022-11-25] MEDS: PANTOPRAZOLE 40 MG TABLET PO SCH (10:06)
[2022-11-25] MEDS: LACTATED RINGERS 1,000 ML IV SCH (12:39)
[2022-11-25] MEDS: SODIUM CHLORIDE 0.45% 1,000 ML IV SCH ×2 (12:40→17:20)
[2022-11-25] MEDS: FERRIC GLUCONATE COMPLEX 125 MG in SODIUM CHLORIDE 0.9% 100 ML IV SCH (12:41)
[2022-11-25] MEDS: cefTRIAXone 2,000 MG in SODIUM CHLORIDE 0.9% 100 ML IV SCH (12:42)
[2022-11-25 20:04] LABS: Hematocrit 32.6 VOL% (42.0-52.0); Hemoglobin 9.6 GM/DL (14.0-18.0)
[2022-11-25] MEDS: ACETAMINOPHEN 325 MG TABLET PO PRN (20:30)
[2022-11-25] MEDS: tiZANidine 4 MG TABLET PO SCH (20:30)
[2022-11-25] MEDS: MEROPENEM 500 MG in SODIUM CHLORIDE 0.9% 100 ML IV SCH (20:30)
[2022-11-26] MEDS: ALBUTEROL/IPRATROPIUM 3 ML NEB RESP TX SCH ×4 (01:49→19:45)
[2022-11-26] MEDS: MEROPENEM 500 MG in SODIUM CHLORIDE 0.9% 100 ML IV SCH ×4 (02:31→22:15)
[2022-11-26 05:56] LABS: Basophils % 0.6 % (0.0-0.8); Eosinophils % 1.2 % (0.00-10.9); Hemoglobin 9.6 GM/DL (14.0-18.0); Immature Granulocytes % 0.3 %; Immature Granulocytes Absolute 0.01 #; Lymphocytes # 1.4 10*3/uL (1.4-4.0); Lymphocytes % 41.1 % (21.2-54.2); Mean Corpuscular HGB Conc 29.2 GM/DL (32-36); Mean Corpuscular Volume 83.5 FL (87-102); Mean Platelet Volume 10.2 FL (9.6-12.0); Monocytes # 0.3 10*3/uL (0.11-0.8); Monocytes % 9.1 % (1.7-12.7); Neutrophils % 47.7 % (38.7-73.9); Platelet Count 169 T/CUMM (130-400); Red Blood Count 3.94 MC/CUMM (3.8-5.5); Red Cell Distribution Width 20.5 % (9.3-17.3); White Blood Count 3.3 T/CUMM (4-12)
[2022-11-26 05:58] LABS: Calcium 8.5 MG/DL (8.5-10.1); Osmolality,Calculated 273.7 MOS/KG (273-304); Potassium 3.2 MMOL/L (3.5-5.1)
[2022-11-26 06:02] LABS: Hematocrit 32.9 VOL% (42.0-52.0)
[2022-11-26] MEDS: PYRIDOSTIGMINE 60 MG TABLET PO SCH ×5 (06:41→21:33)
[2022-11-26] MEDS: DORNASE ALFA 2.5 MG/2.5 ML VIAL RESP TX SCH ×2 (07:40→19:55)
[2022-11-26] MEDS: LACTATED RINGERS 1,000 ML IV SCH (08:27)
[2022-11-26] MEDS ORDERED: POTASSIUM CHLORIDE 20 MEQ TABLET PO ONE (11:00)
[2022-11-26] MEDS: THEOPHYLLINE ER 300 MG TABLET PO SCH ×2 (11:25→21:33)
[2022-11-26] MEDS: MONTELUKAST 10 MG TABLET PO SCH (11:25)
[2022-11-26] MEDS: PANTOPRAZOLE 40 MG TABLET PO SCH (11:25)
[2022-11-26] MEDS: CHOLECALCIFEROL 1,000 UNIT TABLET PO SCH (11:25)
[2022-11-26] MEDS: ALBUTEROL 0.4 MG/ML 30 ML/BOTTLE PO SCH ×3 (11:25→21:33)
[2022-11-26] MEDS: SODIUM CHLORIDE 0.45% 1,000 ML IV SCH (11:37)
[2022-11-26] MEDS: MORPHINE ER 30 MG TABLET PO SCH ×2 (11:38→21:33)
[2022-11-26] MEDS: oxyCODONE/ACETAMINOPHEN 5-325 MG TABLET PO PRN (12:20)
[2022-11-26] MEDS: FERRIC GLUCONATE COMPLEX 125 MG in SODIUM CHLORIDE 0.9% 100 ML IV SCH (12:22)
[2022-11-26] MEDS: tiZANidine 4 MG TABLET PO SCH (21:33)
[2022-11-27] MEDS: ALBUTEROL/IPRATROPIUM 3 ML NEB RESP TX SCH ×2 (00:20→07:19)
[2022-11-27] MEDS: MEROPENEM 500 MG in SODIUM CHLORIDE 0.9% 100 ML IV SCH ×2 (02:09→09:48)
[2022-11-27] MEDS: PYRIDOSTIGMINE 60 MG TABLET PO SCH ×2 (05:09→09:46)
[2022-11-27 05:34] LABS: Calcium 8.6 MG/DL (8.5-10.1); Osmolality,Calculated 275.5 MOS/KG (273-304); Potassium 3.4 MMOL/L (3.5-5.1)
[2022-11-27 05:55] LABS: Eosinophils # 0.1 10*3/uL (0.0-0.87); Eosinophils % 1.6 % (0.00-10.9); Hematocrit 31.2 VOL% (42.0-52.0); Hemoglobin 9.1 GM/DL (14.0-18.0); Lymphocytes # 1.2 10*3/uL (1.4-4.0); Lymphocytes % 38.9 % (21.2-54.2); Mean Corpuscular HGB Conc 29.2 GM/DL (32-36); Mean Corpuscular Volume 83.2 FL (87-102); Mean Platelet Volume 10.4 FL (9.6-12.0); Monocytes # 0.3 10*3/uL (0.11-0.8); Monocytes % 10.9 % (1.7-12.7); Neutrophils % 47.6 % (38.7-73.9); Platelet Count 155 T/CUMM (130-400); Red Blood Count 3.75 MC/CUMM (3.8-5.5); Red Cell Distribution Width 21.2 % (9.3-17.3); White Blood Count 3.1 T/CUMM (4-12)
[2022-11-27 06:06] LABS: Platelet Estimate Normal
[2022-11-27 06:07] LABS: Anisocytosis 1+; Hypochromia 1+; Ovalocytes Few; Tear Drop Cells Few
[2022-11-27] MEDS: DORNASE ALFA 2.5 MG/2.5 ML VIAL RESP TX SCH (07:19)
[2022-11-27 08:27] VITALS: BP 108/51
[2022-11-27] MEDS: ROSUVASTATIN 20 MG TABLET PO SCH (09:46)
[2022-11-27] MEDS: THEOPHYLLINE ER 300 MG TABLET PO SCH (09:46)
[2022-11-27] MEDS: MONTELUKAST 10 MG TABLET PO SCH (09:46)
[2022-11-27] MEDS: PANTOPRAZOLE 40 MG TABLET PO SCH (09:46)
[2022-11-27] MEDS: CHOLECALCIFEROL 1,000 UNIT TABLET PO SCH (09:46)
[2022-11-27] MEDS: LACTATED RINGERS 1,000 ML IV SCH (09:47)
[2022-11-27] MEDS: MORPHINE ER 30 MG TABLET PO SCH (09:47)
[2022-11-27] MEDS: FERRIC GLUCONATE COMPLEX 125 MG in SODIUM CHLORIDE 0.9% 100 ML IV SCH (09:48)
[2022-11-27] MEDS: ALBUTEROL 0.4 MG/ML 30 ML/BOTTLE PO SCH (09:48)
== END 2022-11-27 13:15 | disposition home health service (06) | DRG 177 ==
LOC: N.ED 13:40 → N.EDINP 17:02 → N.2E 20:53
PROVIDERS: ADMIT Hospitalist; ATTEND Hospitalist
PROC: EGDWPEG (ICD-10-PCS; 2022-11-24 12:05)

== ENCOUNTER 2022-12-08 12:00 | Inpatient (IN) ==
[2022-12-08] MEDS ORDERED: CEFEPIME 1,000 MG in SODIUM CHLORIDE 0.9% 100 ML IV STA (12:45)
[2022-12-08] MEDS ORDERED: VANCOMYCIN INJ 1,000 MG in SODIUM CHLORIDE 0.9% 250 ML IV STA (12:45)
[2022-12-08 12:49] LABS: Basophils % 0.1 % (0.0-0.8); Hematocrit 33.5 VOL% (42.0-52.0); Hemoglobin 10.3 GM/DL (14.0-18.0); Immature Granulocytes % 1.2 %; Immature Granulocytes Absolute 0.09 #; Lymphocytes # 0.5 10*3/uL (1.4-4.0); Lymphocytes % 6.3 % (21.2-54.2); Mean Corpuscular HGB Conc 30.7 GM/DL (32-36); Mean Corpuscular Volume 86.8 FL (87-102); Mean Platelet Volume 10.2 FL (9.6-12.0); Monocytes # 0.3 10*3/uL (0.11-0.8); Monocytes % 4.1 % (1.7-12.7); Neutrophils % 88.3 % (38.7-73.9); Platelet Count 167 T/CUMM (130-400); Red Blood Count 3.86 MC/CUMM (3.8-5.5); White Blood Count 7.64 T/CUMM (4-12)
[2022-12-08 12:57] LABS: INR 1.1; PT Patient Result 11.9 SECS (10.1-12.1)
[2022-12-08 13:07] LABS: Albumin 2.3 G/DL (3.4-5.0); Bilirubin,Total 1.1 MG/DL (0.20-1.00); Calcium 8.7 MG/DL (8.5-10.1); Osmolality,Calculated 283.8 MOS/KG (273-304); Potassium 3.9 MMOL/L (3.5-5.1); Total Protein 6.4 G/DL (6.4-8.2)
[2022-12-08 13:19] LABS: Band Neutrophils 15 % (0-10); Lymphocytes 8 % (20-55); Nucleated Red Blood Cells 1 /100 WBC (0-5); Platelet Estimate Adequate; Total Cells Counted 100
[2022-12-08] MEDS ORDERED: ACETAMINOPHEN 325 MG TABLET PO PRN (13:57)
[2022-12-08] MEDS ORDERED: ONDANSETRON 4 MG/2 ML VIAL IV PRN (14:03)
[2022-12-08] MEDS ORDERED: BISACODYL 5 MG TABLET PEG PRN (14:13)
[2022-12-08] MEDS ORDERED: NITROGLYCERIN SL 0.4 MG TABLET SL PRN (14:13)
[2022-12-08] MEDS: DEXAMETHASONE 4 MG/1 ML VIAL IV SCH (15:40)
[2022-12-08] MEDS: PANTOPRAZOLE 40 MG VIAL IV SCH (15:42)
[2022-12-08] MEDS: MONTELUKAST 10 MG TABLET PEG SCH (15:47)
[2022-12-08] MEDS: ROSUVASTATIN 20 MG TABLET PEG SCH (15:47)
[2022-12-08] MEDS: CHOLECALCIFEROL 1,000 UNIT TABLET PO SCH (15:47)
[2022-12-08] MEDS: ASCORBIC ACID 500 MG TABLET PO SCH ×2 (15:47→21:02)
[2022-12-08] MEDS: ZINC GLUCONATE 50 MG TABLET PO SCH (15:47)
[2022-12-08] MEDS ORDERED: REMDESIVIR 200 MG in SODIUM CHLORIDE 0.9% 210 ML IV ONE (16:00)
[2022-12-08] MEDS: ENOXAPARIN 60 MG/0.6 ML SYRINGE SUBCUT SCH (17:33)
[2022-12-08] MEDS ORDERED: ENOXAPARIN 40 MG/0.4 ML SYRINGE SUBCUT SCH (18:00)
[2022-12-08] MEDS: PYRIDOSTIGMINE 60 MG TABLET PEG SCH ×2 (18:18→21:02)
[2022-12-08] MEDS: ALBUTEROL/IPRATROPIUM 3 ML NEB RESP TX SCH (20:00)
[2022-12-08] MEDS: THEOPHYLLINE ER 300 MG TABLET PO SCH (21:02)
[2022-12-08] MEDS: CEFEPIME 1,000 MG in SODIUM CHLORIDE 0.9% 100 ML IV SCH (21:02)
[2022-12-09] MEDS: ALBUTEROL/IPRATROPIUM 3 ML NEB RESP TX SCH ×4 (00:35→20:10)
[2022-12-09] MEDS: CEFEPIME 1,000 MG in SODIUM CHLORIDE 0.9% 100 ML IV SCH ×3 (04:24→21:51)
[2022-12-09] MEDS: PYRIDOSTIGMINE 60 MG TABLET PEG SCH ×5 (05:00→21:51)
[2022-12-09] MEDS: ENOXAPARIN 60 MG/0.6 ML SYRINGE SUBCUT SCH ×2 (05:00→17:18)
[2022-12-09 06:30] LABS: Basophils % 0.1 % (0.0-0.8); Hemoglobin 9.9 GM/DL (14.0-18.0); Immature Granulocytes % 1.2 %; Immature Granulocytes Absolute 0.09 #; Lymphocytes # 0.3 10*3/uL (1.4-4.0); Lymphocytes % 4.7 % (21.2-54.2); Mean Corpuscular Volume 86.2 FL (87-102); Mean Platelet Volume 9.8 FL (9.6-12.0); Monocytes # 0.4 10*3/uL (0.11-0.8); Monocytes % 4.8 % (1.7-12.7); Neutrophils % 89.2 % (38.7-73.9); Platelet Count 165 T/CUMM (130-400); Red Blood Count 3.83 MC/CUMM (3.8-5.5); White Blood Count 7.31 T/CUMM (4-12)
[2022-12-09 06:55] LABS: Ferritin 457.9 ng/mL (26-388)
[2022-12-09 07:03] LABS: Albumin 2.1 G/DL (3.4-5.0); Bilirubin,Total 0.8 MG/DL (0.20-1.00); Calcium 8.6 MG/DL (8.5-10.1); Osmolality,Calculated 284.7 MOS/KG (273-304); Potassium 3.4 MMOL/L (3.5-5.1); Total Protein 5.9 G/DL (6.4-8.2)
[2022-12-09 07:07] LABS: Band Neutrophils 1 % (0-10); Lymphocytes 5 % (20-55); Total Cells Counted 100
[2022-12-09 07:08] LABS: Hypochromia 1+; Microcytosis 1+; Platelet Estimate Adequate
[2022-12-09] MEDS: VANCOMYCIN INJ 1,000 MG in SODIUM CHLORIDE 0.9% 250 ML IV SCH (09:40)
[2022-12-09] MEDS: PANTOPRAZOLE 40 MG VIAL IV SCH (09:41)
[2022-12-09] MEDS: ZINC GLUCONATE 50 MG TABLET PO SCH (09:41)
[2022-12-09] MEDS: THEOPHYLLINE ER 300 MG TABLET PO SCH ×2 (09:41→21:51)
[2022-12-09] MEDS: DEXAMETHASONE 4 MG/1 ML VIAL IV SCH (09:41)
[2022-12-09] MEDS: CHOLECALCIFEROL 1,000 UNIT TABLET PO SCH (09:41)
[2022-12-09] MEDS: MONTELUKAST 10 MG TABLET PEG SCH (09:41)
[2022-12-09] MEDS: ASCORBIC ACID 500 MG TABLET PO SCH ×2 (09:41→21:51)
[2022-12-09] MEDS: REMDESIVIR 100 MG in SODIUM CHLORIDE 0.9% 100 ML IV SCH (10:40)
[2022-12-09] MEDS ORDERED: MORPHINE 2 MG/1 ML SYRINGE IV PRN (12:41)
[2022-12-09] MEDS ORDERED: oxyCODONE/ACETAMINOPHEN 5-325 MG TABLET PEG PRN (14:00)
[2022-12-09] MEDS: ROSUVASTATIN 20 MG TABLET PEG SCH (15:03)
[2022-12-09] MEDS: FERROUS SULFATE 300 MG/5 ML UDCUP PO SCH (17:18)
[2022-12-10] MEDS: ALBUTEROL/IPRATROPIUM 3 ML NEB RESP TX SCH ×5 (01:06→18:59)
[2022-12-10] MEDS: VANCOMYCIN INJ 1,000 MG in SODIUM CHLORIDE 0.9% 250 ML IV SCH ×2 (01:54→20:35)
[2022-12-10] MEDS ORDERED: OLANZapine 10 MG VIAL IM PRN (04:16)
[2022-12-10] MEDS: CEFEPIME 1,000 MG in SODIUM CHLORIDE 0.9% 100 ML IV SCH ×3 (04:51→20:30)
[2022-12-10] MEDS: PYRIDOSTIGMINE 60 MG TABLET PEG SCH ×5 (05:35→21:27)
[2022-12-10] MEDS: ENOXAPARIN 60 MG/0.6 ML SYRINGE SUBCUT SCH ×2 (05:35→18:00)
[2022-12-10 06:33] LABS: Arterial Base Excess iSTAT 6 MMOL/L (-2.5-2.5); Arterial Bicarbonate iSTAT 30.5 MMOL/L (20-26); Arterial O2 Saturation iSTAT 84 % (95-100); Arterial PCO2 iSTAT 43 MM HG (35-48); Arterial PO2 iSTAT 47 MM HG (80-95); Arterial Total CO2 iSTAT 32 MMO/L (23-27); Arterial pH iSTAT 7.455 (7.35-7.45)
[2022-12-10 07:43] LABS: Basophils % 0.3 % (0.0-0.8); Hematocrit 38.4 VOL% (42.0-52.0); Hemoglobin 11.6 GM/DL (14.0-18.0); Immature Granulocytes % 2.9 %; Immature Granulocytes Absolute 0.46 #; Lymphocytes # 0.7 10*3/uL (1.4-4.0); Lymphocytes % 4.4 % (21.2-54.2); Mean Corpuscular HGB Conc 30.2 GM/DL (32-36); Mean Corpuscular Volume 88.3 FL (87-102); Mean Platelet Volume 11.3 FL (9.6-12.0); Monocytes # 0.9 10*3/uL (0.11-0.8); Monocytes % 5.6 % (1.7-12.7); NRBC # 0.03 10*3/uL; Neutrophils % 86.8 % (38.7-73.9); Platelet Count 299 T/CUMM (130-400); Red Blood Count 4.35 MC/CUMM (3.8-5.5); White Blood Count 15.61 T/CUMM (4-12)
[2022-12-10 08:05] LABS: Anisocytosis 1+; Band Neutrophils 1 % (0-10); Hypochromia 1+; Lymphocytes 4 % (20-55); Microcytosis 1+; Nucleated Red Blood Cells 2 /100 WBC (0-5); Total Cells Counted 100
[2022-12-10 08:06] LABS: Ovalocytes Slight
[2022-12-10 08:22] LABS: Calcium 8.9 MG/DL (8.5-10.1); Osmolality,Calculated 287.4 MOS/KG (273-304); Potassium 3.8 MMOL/L (3.5-5.1)
[2022-12-10 08:23] LABS: Albumin 2.4 G/DL (3.4-5.0); Bilirubin,Total 0.7 MG/DL (0.20-1.00); Calcium 9.2 MG/DL (8.5-10.1); Osmolality,Calculated 288.3 MOS/KG (273-304); Potassium 3.2 MMOL/L (3.5-5.1); Total Protein 6.8 G/DL (6.4-8.2)
[2022-12-10 08:25] VITALS: BP 114/63
[2022-12-10] MEDS ORDERED: HALOPERIDOL 5 MG/ML AMP IM PRN (08:32)
[2022-12-10 08:38] LABS: Ferritin 485.2 ng/mL (26-388)
[2022-12-10] MEDS ORDERED: FLUTICASONE 50 MCG NASAL SPRAY 16 GM BOTTLE BOTH NARES SCH (09:00)
[2022-12-10] MEDS ORDERED: ASPIRIN CHEW 81 MG TABLET PO SCH (09:00)
[2022-12-10] MEDS ORDERED: MELATONIN 3 MG TABLET PO PRN (09:56)
[2022-12-10] MEDS ORDERED: DEXAMETHASONE 4 MG/1 ML VIAL IV SCH (10:00)
[2022-12-10] MEDS: FERROUS SULFATE 300 MG/5 ML UDCUP PO SCH ×2 (10:21→18:00)
[2022-12-10] MEDS: ASCORBIC ACID 500 MG TABLET PO SCH ×2 (10:22→21:27)
[2022-12-10] MEDS: THEOPHYLLINE ER 300 MG TABLET PO SCH ×2 (10:22→21:27)
[2022-12-10] MEDS: ZINC GLUCONATE 50 MG TABLET PO SCH (10:22)
[2022-12-10] MEDS: MONTELUKAST 10 MG TABLET PEG SCH (10:22)
[2022-12-10] MEDS: CHOLECALCIFEROL 1,000 UNIT TABLET PO SCH (10:22)
[2022-12-10] MEDS ORDERED: ETOMIDATE 20 MG/10 ML VIAL IV ONE ×2 (10:44→10:52)
[2022-12-10] MEDS ORDERED: SUCCINYLCHOLINE 200 MG/10 ML VIAL ONE (10:44)
[2022-12-10] MEDS: PANTOPRAZOLE 40 MG VIAL IV SCH (10:48)
[2022-12-10] MEDS: DEXAMETHASONE 4 MG/1 ML VIAL IV SCH (10:49)
[2022-12-10 10:52] LABS: Arterial Base Excess iSTAT 2 MMOL/L (-2.5-2.5); Arterial Bicarbonate iSTAT 29.7 MMOL/L (20-26); Arterial O2 Saturation iSTAT 77 % (95-100); Arterial PCO2 iSTAT 63 MM HG (35-48); Arterial PO2 iSTAT 48 MM HG (80-95); Arterial Total CO2 iSTAT 32 MMO/L (23-27); Arterial pH iSTAT 7.281 (7.35-7.45)
[2022-12-10] MEDS ORDERED: SUCCINYLCHOLINE 200 MG/10 ML VIAL IV ONE (10:53)
[2022-12-10] MEDS ORDERED: SODIUM CHLORIDE 0.9% 1,000 ML IV ONE ×2 (11:00→15:18)
[2022-12-10] MEDS ORDERED: MIDAZOLAM DRIP 100 MG/100 ML PREMIX IV PRN (11:13)
[2022-12-10 11:36] LABS: Arterial Base Excess iSTAT 0 MMOL/L (-2.5-2.5); Arterial Bicarbonate iSTAT 28.7 MMOL/L (20-26); Arterial O2 Saturation iSTAT 84 % (95-100); Arterial PCO2 iSTAT 68 MM HG (35-48); Arterial PO2 iSTAT 59 MM HG (80-95); Arterial Total CO2 iSTAT 31 MMO/L (23-27); Arterial pH iSTAT 7.234 (7.35-7.45)
[2022-12-10] MEDS ORDERED: SODIUM CHLORIDE 0.9% 500 ML IV ONE (12:00)
[2022-12-10] MEDS: REMDESIVIR 100 MG in SODIUM CHLORIDE 0.9% 100 ML IV SCH (12:30)
[2022-12-10 13:07] LABS: Red Cell Distribution Width 26.5 % (9.3-17.3)
[2022-12-10 13:26] LABS: Alanine Aminotransferase 49 U/L (16-61); Albumin 1.8 G/DL (3.4-5.0); Alkaline Phosphatase 433 U/L (45-117); Aspartate Amino Transferase 64 U/L (0-37); Blood Urea Nitrogen 32 MG/DL (7-18); Calcium 8.1 MG/DL (8.5-10.1); Carbon Dioxide 27 MMOL/L (21-32); Chloride 107 MMOL/L (98-107); Glucose 77 MG/DL (74-106); Osmolality,Calculated 293.7 MOS/KG (273-304); Potassium 3.2 MMOL/L (3.5-5.1); Sodium 145 MMOL/L (136-145); Total Protein 5.2 G/DL (6.4-8.2)
[2022-12-10 13:28] LABS: Basophils % 0.2 % (0.0-0.8); Hematocrit 36.7 VOL% (42.0-52.0); Immature Granulocytes % 4.5 %; Immature Granulocytes Absolute 0.39 #; Lymphocytes # 0.1 10*3/uL (1.4-4.0); Lymphocytes % 1.2 % (21.2-54.2); Mean Corpuscular HGB Conc 28.6 GM/DL (32-36); Mean Corpuscular Volume 91.8 FL (87-102); Mean Platelet Volume 10.7 FL (9.6-12.0); Monocytes # 0.1 10*3/uL (0.11-0.8); Monocytes % 0.7 % (1.7-12.7); Neutrophils % 93.4 % (38.7-73.9); Platelet Count 245 T/CUMM (130-400)
[2022-12-10 13:32] LABS: Hemoglobin 10.5 GM/DL (14.0-18.0)
[2022-12-10] MEDS: NOREPINEPHRINE DRIP 8 MG/250 ML PREMIX IV PRN ×4 (14:00→23:01)
[2022-12-10] MEDS: POTASSIUM BICARB EFFERVESCENT 20 MEQ TAB.EFF PER TUBE PRN ×3 (16:00→23:25)
[2022-12-10] MEDS ORDERED: PHENYLEPHRINE DRIP 40 MG/250 ML PREMIX IV ONE (16:40)
[2022-12-10] MEDS ORDERED: ALBUMIN 25% 25 GM/100 ML VIAL IV ONE (16:52)
[2022-12-10] MEDS ORDERED: HYDROCORTISONE 100 MG VIAL IV ONE (17:00)
[2022-12-10] MEDS ORDERED: VASOPRESSIN 100 UNITS in SODIUM CHLORIDE 0.9% 95 ML IV PRN (18:00)
[2022-12-10 18:52] LABS: ABG Base Excess -15.7 MMOL/L (-2.5-2.5); ABG Oxygen Saturation 57.5 % (95-100); ABG PO2 56.1 MM HG (80-95); ABG TCO2 20.1 MMOL/L (23-27)
[2022-12-10 18:57] LABS: ABG PH 6.906 (7.35-7.45)
[2022-12-10 18:58] LABS: ABG PCO2 99.1 MM HG (35-48)
[2022-12-10] MEDS ORDERED: SODIUM BICARBONATE 50 MEQ/50 ML VIAL IV ONE ×3 (19:01→19:04)
[2022-12-10 19:12] LABS: Calcium 7.8 MG/DL (8.5-10.1); Osmolality,Calculated 291.8 MOS/KG (273-304); Potassium 4.3 MMOL/L (3.5-5.1)
[2022-12-10 19:24] LABS: Basophils # 0.1 10*3/uL (0.0-0.2); Basophils % 0.3 % (0.0-0.8); Eosinophils % 0.1 % (0.00-10.9); Hematocrit 37.7 VOL% (42.0-52.0); Immature Granulocytes % 4.7 %; Immature Granulocytes Absolute 1.74 #; Lymphocytes # 0.9 10*3/uL (1.4-4.0); Lymphocytes % 2.5 % (21.2-54.2); Mean Corpuscular HGB Conc 27.3 GM/DL (32-36); Mean Platelet Volume 11.4 FL (9.6-12.0); Monocytes # 0.6 10*3/uL (0.11-0.8); Monocytes % 1.5 % (1.7-12.7); NRBC # 0.89 10*3/uL; Neutrophils % 90.9 % (38.7-73.9); Platelet Count 274 T/CUMM (130-400); Red Blood Count 3.81 MC/CUMM (3.8-5.5); Red Cell Distribution Width 26.7 % (9.3-17.3); White Blood Count 37.41 T/CUMM (4-12)
[2022-12-10 19:25] LABS: Hemoglobin 10.3 GM/DL (14.0-18.0)
[2022-12-10 20:08] LABS: Lymphocytes 1 % (20-55); Total Cells Counted 100
[2022-12-10 20:09] LABS: Nucleated Red Blood Cells 2 /100 WBC (0-5)
[2022-12-10 20:10] LABS: Anisocytosis 1+; Platelet Estimate Adequate
[2022-12-10 20:11] LABS: Hypochromia Slight; Microcytosis Slight; Ovalocytes 1+
[2022-12-10 20:19] LABS: Arterial Bicarbonate iSTAT 20.8 MMOL/L (20-26); Arterial pH iSTAT 7.019 (7.35-7.45)
[2022-12-10 20:19] LABS: Arterial Bicarbonate iSTAT 23.8 MMOL/L (20-26); Arterial pH iSTAT 7.198 (7.35-7.45)
[2022-12-10] MEDS: DEXTROSE 10% 250 ML BAG IV PRN (20:20)
[2022-12-10] MEDS: PHENYLEPHRINE DRIP 40 MG/250 ML PREMIX IV PRN ×2 (20:20→21:43)
[2022-12-10] MEDS ORDERED: FAMOTIDINE 20 MG TABLET PO SCH (21:00)
[2022-12-10] MEDS ORDERED: ROSUVASTATIN 20 MG TABLET PEG SCH (21:00)
[2022-12-10] MEDS ORDERED: PHENYLEPHRINE INJ 160 MG in SODIUM CHLORIDE 0.9% 234 ML IV PRN (21:49)
[2022-12-11] MEDS: ALBUTEROL/IPRATROPIUM 3 ML NEB RESP TX SCH ×2 (00:23→07:36)
[2022-12-11] MEDS: NOREPINEPHRINE 16 MG in SODIUM CHLORIDE 0.9% 234 ML IV PRN ×2 (01:02→05:08)
[2022-12-11] MEDS: DEXTROSE 10% 250 ML BAG IV PRN ×2 (03:17→05:30)
[2022-12-11 04:35] LABS: Arterial Bicarbonate iSTAT 14.4 MMOL/L (20-26); Arterial pH iSTAT 6.867 (7.35-7.45)
[2022-12-11 04:38] LABS: Basophils # 0.2 10*3/uL (0.0-0.2); Basophils % 0.3 % (0.0-0.8); Hematocrit 36.1 VOL% (42.0-52.0); Hemoglobin 9.3 GM/DL (14.0-18.0); Immature Granulocytes % 1.5 %; Immature Granulocytes Absolute 0.93 #; Lymphocytes # 1.6 10*3/uL (1.4-4.0); Lymphocytes % 2.6 % (21.2-54.2); Mean Corpuscular HGB Conc 25.8 GM/DL (32-36); Mean Corpuscular Volume 104.6 FL (87-102); Mean Platelet Volume 11.5 FL (9.6-12.0); Monocytes % 1.6 % (1.7-12.7); NRBC # 0.93 10*3/uL; Platelet Count 185 T/CUMM (130-400); Red Blood Count 3.45 MC/CUMM (3.8-5.5); Red Cell Distribution Width 26.3 % (9.3-17.3)
[2022-12-11] MEDS ORDERED: DEXTROSE 10% 500 ML IV SCH (04:40)
[2022-12-11 04:48] LABS: White Blood Count 62.89 T/CUMM (4-12)
[2022-12-11 05:06] LABS: Ferritin 1880.5 ng/mL (26-388)
[2022-12-11 05:07] LABS: Anisocytosis 1+; Band Neutrophils 12 % (0-10); Eosinophils 1 % (0-10); Lymphocytes 5 % (20-55); Metamyelocytes 5 %; Myelocytes 4 %; Nucleated Red Blood Cells 3 /100 WBC (0-5); Total Cells Counted 100
[2022-12-11 05:08] LABS: Albumin 1.7 G/DL (3.4-5.0); Calcium 7.8 MG/DL (8.5-10.1); Hypochromia Slight; Osmolality,Calculated 286.4 MOS/KG (273-304); Ovalocytes Slight; Polychromasia Slight; Potassium 5.2 MMOL/L (3.5-5.1); Total Protein 4.5 G/DL (6.4-8.2)
[2022-12-11] MEDS: ENOXAPARIN 60 MG/0.6 ML SYRINGE SUBCUT SCH (05:24)
[2022-12-11] MEDS: CEFEPIME 1,000 MG in SODIUM CHLORIDE 0.9% 100 ML IV SCH (05:25)
[2022-12-11] MEDS: PYRIDOSTIGMINE 60 MG TABLET PEG SCH (05:25)
[2022-12-11] MEDS ORDERED: DEXAMETHASONE 4 MG/1 ML VIAL IV SCH (09:00)
[2022-12-11] MEDS ORDERED: CETIRIZINE 10 MG TABLET PO SCH (09:00)
== END 2022-12-11 07:44 | disposition expired | DRG 208 ==
LOC: N.ED 12:00 → SUATTDRO 13:46 → N.EDINP 13:46 → N.3E 15:57 → N.CC 12-10 09:51
PROVIDERS: ADMIT Hospitalist; ATTEND Family Medicine